=== PATIENT | female | born 1990 | race Caucasian/White ===

== ENCOUNTER 2024-10-31 09:19 | Outpatient (RCR) | payer OTHER, SELFPAY ==
--- NOTE | 2024-10-31 09:00 | BH.SGPN.GN ---
Behaviors/Verbalizations/Mental Status: []? Eye contact is good. Motor activity is appropriate. Appearance is casual. Speech is Appropriate. Mood is anxious and depressed. Affect is congruent. Thoughts are linear and logical. No evidence of psychosis. Reviewed daily check in sheet and no reports of suicidal ideations or intent? Client Response/Progress/Benefit: []? Pt participated when prompted. Shared with the group that today is her first?day in IOP. Pt expressed struggling to get back to baseline following issues at work. Described ruminating and avoidance since. Noted that she would like to learn skills to better manage her mental health and reduce the impact they are having on daily life. Progress noted. Benefited from group support and encouragement. Recommended continued IOP tx to improve mood stability, reduce depression, and increase confidence.? Narrative Note: []
--- NOTE | 2024-10-31 09:30 | BH.COMM ---
Communication Note Communication with Client Communication Note: Met with pt to complete paperwork, update any changes to pre-admission screening, and complete risk assessment. Low risk on [place] [facility] Scre[facility]. Consulted with Dr. Mae regarding current symptoms with orders to admit to IOP with dx of F41.1
--- NOTE | 2024-10-31 10:10 | BH.SGPN.GN ---
Behaviors/Verbalizations/Mental Status: []Eye contact is good. Motor activity is appropriate. Appearance is casual. Speech is Appropriate. Mood is anxious. Affect is congruent. Thoughts are linear and logical. No evidence of psychosis. Client Response/Progress/Benefit: []Pt was an active participant in group discussion. Engaged and attentive during psychoeducation and interactive discussion on coping skills, why people use unhealthy coping skills, how to replace unhealthy coping skills, and internal vs external coping skills. Attentive as peers came up with list of unhealthy coping skills. Pt reported personally, she tends to ignore when she needs helps and push through which leads to more problems. Group discussed the effects of maladaptive coping skills on mental health. Benefited from increased understanding of unhealthy coping skills and the need for developing healthy internal and external coping skills. Actively participated during experiential group activity and was able to related this activity to group topic. Will continue in IOP to prevent decompensation, gain healthy coping skills, and improve functioning. Narrative Note: []
--- NOTE | 2024-10-31 11:10 | BH.SGPN.GN ---
Behaviors/Verbalizations/Mental Status: []Pt alert and oriented, casually dressed and groomed. Eye contact good. Motor activity appropriate. Speech within normal limits. Affect constricted, mood anxious. Thoughts linear, logical, no signs of hallucinations or delusions. Client Response/Progress/Benefit: [] Pt responded well to session, taking notes and contributing when prompted. Group discussed the different categories of coping skills which included distraction, emotional release, grounding, self-love, and thought challenging. Pt participated in creating a coping skills ?menu? from the different categories of coping skills. Pt's coping skill menu included: music, breathing skills, self-care, socializing, and looking at evidence against a negative thought. Appeared to benefit from increasing repertoire of healthy coping skills. Will continue IOP to improve use of healthy coping, improve motivation, and prevent decompensation.
--- NOTE | 2024-11-02 08:00 | BH.COMM ---
Communication Note Communication with Client Communication Note: Program psychiatrist was set to meet with patient on 10/31/24 however due to psychiatrist illness it was cancelled. Rescheduled the initial psych eval till 11/02/24. Unfortunately program psychiatrist remained ill and was unable to meet with pt. Unable to secure another psychiatrist to cover in short time frame. Consulted with program psychiatrist over the phone and recommends pt continue in IOP based on symptoms presented as w/o the program he will decompensate. Arrangements made for psychiatry coverage for next week. Pt aware and agreeable.
--- NOTE | 2024-11-02 09:00 | BH.SGPN.GN ---
Behaviors/Verbalizations/Mental Status: [] Eye contact is good. Motor activity is appropriate. Appearance is casual. Speech is Appropriate. Mood is anxious. Affect is congruent. Thoughts are linear and logical. No evidence of psychosis. Reviewed daily check in sheet and no reports of suicidal ideations or intent Client Response/Progress/Benefit: [] Pt participated when prompted. Attentive. Daily symptom tracker notes 09/30 for depression, anxiety, and irritability. Reports improved mood from earlier this week which she notes may be due to increase social engagement with friends yesterday. Elaborated on activities she completed with friends and how this is beneficial for her mental health. Very brief and superficial check-in. She reports continues anxiety, stress, and fear related to her job, however did not elaborate. Limited progress noted. Benefited from group support,enocuragment, and feedback. Will continue in IOP to prevent decompensation, stabilize anxiety, and improve functioning to return to work. Narrative Note: []
--- NOTE | 2024-11-02 10:15 | BH.SGPN.GN ---
Behaviors/Verbalizations/Mental Status: [] Eye contact is good. Motor activity is appropriate. Appearance is casual. Speech is Appropriate. Mood is anxious. Affect is congruent. Thoughts are linear and logical. No evidence of psychosis Client Response/Progress/Benefit: [] Pt receptive to session AEB listening attentively to others and taking notes. Pt attentive throughout psychoeducation on the cognitive triangle and maintenance cycles. Pt attentive and engaged during small group discussion reviewing the impact of daily activities and behaviors in either reinforcing unhealthy maintenance cycles and depression or assisting in reducing symptoms (?down? vs ?up? activities). Pt identified common up activities (working out, dancing, going for walks, crafts) and down activities (unrealistic goals, not showering, isolation). Appeared to benefit from increased awareness of current behaviors and impact these have on mental health. Will continue IOP to prevent decompensation, stablize anxiety, increase healthy coping, and improve functioning to return to work. Narrative Note: []
--- NOTE | 2024-11-02 11:10 | BH.SGPN.GN ---
Behaviors/Verbalizations/Mental Status: []Pt alert and oriented, neatly dressed and groomed. Eye contact good. Motor activity appropriate. Speech within normal limits. Affect congruent, mood euthymic and anxious. Thoughts linear, logical, no signs of hallucinations or delusions. Client Response/Progress/Benefit: [] Pt responded well to session, attentive and engaged in group discussions and activity. Actively engaged in continued discussion about up activities and down activities. Active participant as group discussed values and the benefits that knowing one's values can have on one's mental health. Pt completed worksheet on values and set a goal to improve her spirituality by going to mu-ism and spending time reading the bible. Benefited from increased awareness of their personal values and how incorporating their values into behavioral activation goals can positively impact mental health. Will continue in IOP to prevent decompensation, improve daily functioning, and reduce negative thinking patterns. Narrative Note: []
--- NOTE | 2024-11-07 09:45 | BH.NA ---
Physical Data Vital Signs Pulse Rate: 79 Blood Pressure: 121/78 Height/Weight Height: 1.63 m Weight:: 58.967 kg Weight in Pounds: 130.0 lbs Current Medication Compliance Medication Compliance Do you take your medication as prescribed?: Yes Nutritional History Appetite Nutritional Instructions: Describe your appetite:: Good Functional Assessment Sleep Pattern Describe any problems with sleeping: Client states since she has not been working the last few weeks, she has been sleeping more at night. Client states that she has not taken Ativan the last 3 nights though so she has been having more trouble getting to sleep. Sensory/Communication Assess Vision Problems Do you have any vision problems?: Glasses Communication Problems Do you have difficulty understanding what people are saying?: No Medical Problems/History Pain Assessment Do you have acute or chronic pain?: No Surgical History Surgical History Have you had any surgeries? If so, list type and date:: No Substance Abuse Substance Abuse Please describe substance abuse in the last 30 days:: Client denies alcohol, tobacco or substance use. Client states she drinks coffee and tea, usually 2-3 cups per day. Mental Status Summary Mental Status Significant Findings/Observations on Appearance and Mood:: Client is alert and oriented x 4. Client is casually groomed. Client is cooperative with assessment. Client makes fair eye contact. Client's voice has normal rate and volume. Client has a somewhat restricted affect. Client makes logical associations and has normal processing. Client denies delusions/hallucinations. Client denies SI. Suicide Assessment Suicidal Ideation Are you currently or have you been suicidal in the past?: No Suicidal Intentional Rating Scale (SIRS): No suicidal thoughts (past or present) Physician Notification Past Psychiatric History MH Treatment Hx Past Psychiatric Medications:: now taking Lexapro and this is her first medication for mental health Age of first mental health symptoms: Client states this year is the first time she has been on medication for mental health. Client does admit to symptoms of anxiety for several years. Describe (age, circumstance, etc) any past hospitalizations: None. Current providers for mental health treatment (counselor, psychiatrist, case consultant, etc.): Abimael Ortiz for counseling at [facility] Fall Risk Assessment Age Age: Less than 60 Mental Status Mental Status: Willing & able to ask for assistance when needed Physical Status Physical Status: No problems Impairments Impairments: None Elimination Elimination: Continent AND independent Gait or Balance Gait or Balance: Walks independently Hx of Falls History of falls in the past 6 months: No known history Medications/Substances Psychotropics:: Antidepressants Medications/substances used within the past 24 hours or ordered to administer: 1-2 of the medications/substances listed above Total Score Total Points:: 1 RN Summary of Impressions Impressions Recommendations Impressions: Psychiatric Issues: 1. Generalized anxiety disorder 2. Major depressive disorder, recurrent, moderate 3. Rule out mild autism 4. Primary support and work issues Level of Care How do the client's current symptoms and functional deficits support need for this level of care?: Client as referred to IOP by her therapist for increased anxiety. Client states it all started about a month ago when three days in a row at work, she did not feel like herself. Client states she felt like she was being tested and was afraid she was doing something wrong at work even though she knows she was doing what she was supposed to do. Client admits to thoughts that technology was testing her and she was afraid she was being tracked. Client states her anxiety is slightly less since she has been off work. Client states she recently had been living alone, but anxiety caused her to move back in with her parents. Client states she feels like she easy just shuts down when she starts feeling anxious. Client denies SI. IOP will promote gains and prevent further decompensation while providing social support and skills training.
--- NOTE | 2024-11-07 11:10 | BH.SGPN.GN ---
Behaviors/Verbalizations/Mental Status: []Pt alert and oriented, casual dressed and groomed. Eye contact good. Motor activity appropriate. Speech within normal limits. Affect congruent, mood anxious. Thoughts linear, logical, no signs of hallucinations or delusions. Client Response/Progress/Benefit: []Pt was an active participant during activity and discussion. Pt did well to remain attentive and participate as group worked on identifying characteristics and benefits of adopting a growth mindset. Worked with fellow participants in reframing the example fixed thoughts into growth mindset thoughts. Pt worked on changing own fixed thought and reframed the thought. Pt also wants to work on slowing down. Pt appeared to benefit from challenging own thoughts and engaging in the activity. Pt will continue IOP tx to decrease anxious avoidance, improve follow through on goals, and prevent decompensation.
[2024-11-07 11:31] VITALS: BP 121/78; PULSE 79
--- NOTE | 2024-11-07 12:25 | BH.PSY.EVA_ITS ---
Psychiatric Evaluation Initial Evaluation Initial Evaluation: History of Present Illness: [] The patient is a 33-year-old single female with a history of depression and anxiety who is who was referred by her therapist for worsening anxiety in the past few months. The patient has been on FMLA from work for the past 4 weeks due to her mental health issues. 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 In addition her roommate moved out and she had a move recently and is now living alone. She moved back in with her parents for 3 weeks but now got an apartment where she lives alone. She has a hard time being alone at times and she is having intrusive thoughts that she is doing things wrong at work and they are tracking her. She is aware that this is not actually happening. She has a history of an stressful incident at her last job where she worked for 10 years but then quit that job after an uncomfortable incident at work that she witnessed. For primary support she has her family sisters and friends. She endorses feeling confused and a little down. She endorses worthlessness, guilt, somewhat decreased appetite with stable weight. Her sleep is good now at 9 to 10 hours a night which she has low energy level and decreased concentration. When asked if she endorses enjoying anything she does she states I am not doing much. She is a worrier by nature but denies panic attacks, OCD, eating disorder, trauma or PTSD. She denies passive thoughts of , suicidal ideation, plan for suicide, homicidal ideation, hallucinations, delusions or symptoms of shobha ever. She denies any history of self-harm. She drinks 1 cup of coffee and a lot of caffeinated tea daily but is trying to drink more water. Current Psychiatric Medications: [] Lexapro (liquid formulation) 10 mg p.o. daily (x 1 month); Ativan 0.5 mg daily which she discontinued 4 days ago. Past Psychiatric History: [] No psych admits ever no suicide attempts ever she does have a therapist she sees regularly she was first anxious since she started school but she took her first medication for psychiatric reasons only 1 month ago which is the Lexapro. No other psych meds ever. She had counseling 5 to 10 years ago after she was at a neighbor's house 1 for reasons unknown to her she felt severe anxiety and felt like the place was demonic. This anxiety eventually resolved but she did see a counselor for it. Substance Use History: [] Non-smoker. No vaping. No marijuana. No alcohol or drug use. Allergies: [] Benadryl and sulfa Medications: [] Psych meds plus Tylenol as needed Past Medical History: [] No medical illnesses. No surgeries ever. 0 para 0 female who gets periods about once a month. She is not sexually active and is on no control. Family Psychiatric History: [] Mom is 63 years old and dad is 66 years old. The patient denies any psych history in the family and denies any completed suicide. She also denies any substance issues in her extended family. Personal/Social History: [] Patient was born and raised in [place] and describes her childhood as good. Parents are and the patient is the middle child and has a sister 3 years older and sisters 5 years younger than her. She did not do that well at school because she had dyslexia but she did graduate high school and went to college for 4 years total and obtained an associates degree in deltamethod. She denies any physical, verbal or sexual abuse ever. She has never had a serious relationship but she does want a boyfriend. 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 Legal History: [] No arrests. 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 No DUIs. Review of Systems: [] Negative except as noted in present illness. Vital Signs: [] Reviewed and nurses notes and updated and the patient is deemed medically able to participate in the IOP. Mental Status Examination: [] The patient is a 33-year-old female who appears normal for stated age and is seen wearing glasses. She is casually dressed and groomed with good hygiene and has no psychomotor agitation or retardation. Eye contact is fair to good. Speech is normal rate and rhythm and fluent but at times the patient seems to have difficulty describing feelings. Mood is anxious. Affect is constricted. Thought process is goal-directed and organized. Thought content: There is evidence of trauma from a prior incident at a prior job and there is work stress. There is no evidence of passive thoughts of , suicidal ideation, homicidal ideation, hallucinations, delusions or symptoms of shobha. Reality testing is intact. Intelligence is average. Judgment is intact. Insight is limited but some present. Impulsivity is low. Diagnoses: [] 1. Generalized anxiety disorder 2. Major depressive disorder, recurrent, moderate 3. Rule out mild autism 4. Primary support and work issues Plan: [] The patient will start the behavioral health IOP at [facility] as the structure, support, education and group therapy will hopefully prevent worsening of the patient's symptoms. The risk, options, possible complications and side effects of the medication were discussed with the patient and she understands accepts these. She agrees to increase her dose of Lexapro to 20 mg p.o. daily. She will continue to follow-up with her outpatient providers and I will see the patient in follow-up in several weeks. She will limit her use of caffeine if she is anxious.
--- NOTE | 2024-11-07 12:37 | BH.DR.ITP ---
Initial Treatment Plan Patient Information Visit Information: ADMISSION DATE: EXPECTED LOS: 4-6 weeks Problems/Symptoms Problem #1:: Depression Symptom:: Sadness, worthlessness, guilt, low motivation, decreased appetite, low energy, decreased concentration Problem #2:: Anxiety Symptom:: Worry, rumination, avoidance
--- NOTE | 2024-11-07 14:45 | BH.MTP_ITS ---
Master Treatment Plan Patient Information Program Physician:: Dr. Mae Primary Therapist:: Neha Ngo [facility] Psychiatric Diagnoses Psychiatric Diagnoses:: 1. Generalized anxiety disorder 2. Major depressive disorder, recurrent, moderate 3. Rule out mild autism Diagnosis Code(s):: F41.1 Estimated LOS Estimated LOS (in weeks):: 6 Problem/Goal #1 Problem/Goal #1 Stated Goal:: Client will reduce depression, feelings of hopelessness, and low motivation due to Major Depressive Disorder through the Intensive Outpatient Program. Description of Barriers: Potential barriers include: Negative thoughts, avoidance of anxious situations, difficulty communicating, and cognitive distortions. Functional Impact: The patient is a 33-year-old single female with a history of depression and anxiety who is who was referred by her therapist for worsening anxiety in the past few months. The patient has been on FMLA from work for the past 4 weeks due to her mental health issues. 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 She has a hard time being alone at times and she is having intrusive thoughts that she is doing things wrong at work and they are tracking her. She is aware that this is not actually happening. She endorses worthlessness, guilt, and somewhat decreased appetite. Her sleep is good now at 9 to 10 hours a night, but she has low energy level and decreased concentration. When asked if she endorses enjoying anything she does she states I am not doing much. She is a worrier by nature but denies panic attacks. Objectives Objective #1: Stated Objective: Client will learn and utilize 2-3 healthy coping strategies to manage depressive symptoms. Interventions: Therapist will utilize CBT techniques to assist client with understanding the connection between thoughts, feelings and behaviors. Education will be provided on behavioral activation. Therapist will assist client in learning internal coping strategies to manage depressive symptoms, along with helping client identify triggers. Discharge Criteria: Client will have achieved this goal when can verbalize and has practiced at least 2 healthy coping strategies that successfully manage depressive symptoms. Target Date: 12/08/24 Review Date: 11/28/24 Objective #2: Stated Objective: Identify at least 2-3 negative self-talk messages used to reinforce feelings of worthlessness and replace thoughts with positive messages. Interventions: Therapist will help client identify distorted, negative beliefs about self and replace with more realistic, affirmative messages. Discharge Criteria: Client will have achieved this goal when can verbalize at least 2 negative self-talk messages and effectively replace those thoughts with affirmative messages.? Target Date: 12/12/24 Review Date: 11/28/24 Problem/Goal #2 Problem/Goal #2 Stated Goal:: Client will reduce overall frequency, intensity, and duration of the anxiety so that daily functioning is not impaired.? Description of Barriers: Potential barriers include: Negative thoughts, avoidan ce of anxious situations, difficulty communicating, and cognitive distortions. Functional Impact: The patient is a 33-year-old single female with a history of depression and anxiety who is who was referred by her therapist for worsening anxiety in the past few months. The patient has been on FMLA from work for the past 4 weeks due to her mental health issues. 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 She has a hard time being alone at times and she is having intrusive thoughts that she is doing things wrong at work and they are tracking her. She is aware that this is not actually happening. She endorses worthlessness, guilt, and somewhat decreased appetite. Her sleep is good now at 9 to 10 hours a night, but she has low energy level and decreased concentration. When asked if she endorses enjoying anything she does she states I am not doing much. She is a worrier by nature but denies panic attacks. Objectives Objective #1: Stated Objective: Client will learn and implement 2-3 calming skills to reduce overall anxiety and manage anxiety symptoms. Interventions: Therapist and group sessions will help client identify physiological warning signs of anxiety, increase awareness of thoughts that increase anxiety, and identify behaviors that reinforce anxious symptoms. Group and individual counseling will teach client calming skills to help manage anxious symptoms. Discharge Criteria: Client will have achieved this goal when can verbalize at least 2 calming skills and reports skills successfully help reduce anxious sy mptoms. Target Date: 12/12/24 Review Date: 11/28/24 Objective #2: Stated Objective: Client will identify 2-3 anxiety triggers and 2 coping skills to use when feeling anxious. Interventions: Therapist and group sessions will assist client in exploring what triggers anxiety and teach client coping strategies to effectively manage anxiety symptoms. Therapist and group sessions will provide psychoeducation on impact avoidance has on anxiety. Discharge Criteria: Client will have met this goal when can identify at least 2 triggers to anxiety and verbalize two healthy ways to cope with feelings of anxiety. Target Date: 12/12/24 Review Date: 11/28/24
--- NOTE | 2024-11-07 14:59 | BH.MDN ---
Multi-Disciplinary Note Note 45-min Individual: Time Started:: 10:10 Date: 11/07/24 Purpose of session/treatment goals addressed:: Purpose of session was to build rapport, solidify treatment goals, and gather background information. Eye Contact:: Fair Motor Activity:: Appropriate Appearance:: Casual Speech:: Soft Mood:: Anxious Affect:: Constricted Thoughts:: Linear, Logical and No evidence of hallucinations/delusions noted Staff Interventions:: CBT techniques, mindfulness skills (3 minute guided meditation in session), rapport building, strengths perspective, treatment planning, goal setting and taught coping skills (breathing, meditation, opposite action) Client Response:: Client stated she is seeking IOP treatment due to experiencing high amounts of anxiety which negatively impacted her ability to complete her job duties and is currently on leave from work. Client reported she is experiencing several significant stressors at once which led to high amounts of anxiety and difficulty functioning. Client stated she has been off work since October 08 and is feeling anxious about having to return at some point. Client reported additional psychosocial stressor is trying to adjust to living alone in a new apartment because her roommate moved out after getting . Client stated she was staying with her parents for a little bit but now is on her own and is somewhat stressed about adjusting to her own place. Client stated anxiety impacts her daily life and often leads to procrastination at home. Client stated that her procrastination results in chores and tasks not getting completed in a timely manner which leads to her feeling overwhelmed and not wanting to do anything. 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 Client stated something happened at the flower shop but did not want to go into any detail. Client reported the situation that she witnessed resulted in her quitting that job abruptly and does still have anxious thoughts and some trust issues from that situation. Client said in addition to the psychosocial stressors mentioned previously client stated she also has been struggling with adapting to having a new boss at her current job. Client stated she does struggle with being assertive and often jumps to conclusions. She endorses worthlessness, guilt, anhedonia, and somewhat decreased appetite with stable weight. Her sleep is good now at 9 to 10 hours a night, but reports she has low energy level and decreased concentration. She is a worrier by nature but denies panic attacks. Therapist led client in a 3 minute guided meditation to teach her calming skill to help with anxiety management. Therapist also taught client belly breathing and grounding skills. Client open to practice calming skills for homework. Risks/Concerns:: Denies suicidal ideation, plan, or intention to date. future oriented. Progress Toward Goals/Plan:: Client reports ongoing anxiety and depression. client currently on FMLA from work due to worsening anxiety which made it difficult for her to perform her work duties. Client shared she is anxious about the thought of returning back to work. Client and therapist to focus on building healthy anxiety reduction skills to decrease anxious avoidance and improve daily functioning. Client to continue IOP to improve healthy coping, improve follow through on daily home tasks, and prevent decompensation. Time Stopped:: 10:55
--- NOTE | 2024-11-09 09:00 | BH.SGPN.GN ---
Behaviors/Verbalizations/Mental Status: [] Eye contact is good. Motor activity is appropriate. Appearance is casual. Speech is Appropriate. Mood is anxious and euthymic. Affect is congruent. Thoughts are linear and logical. No evidence of psychosis. Reviewed daily check in sheet and no reports of suicidal ideations or intent. Client Response/Progress/Benefit: [] Pt was an active participant in group discussion. Attentive. Daily symptom tracker notes 09/30 for depression, 09/30 for anxiety, and 09/30 for agitation which indicates progress for pt. Shared with the group mental health wins including getting out of the house to get new tags for her car after being isolated due to sickness for much of the week. Identified reminding herself of the importance of showing up for herself and benefits of spending time with support. Shared an additional win as making small progress on cleaning her place via doing laundry and dishes. Progress noted. Benefited from group support, encouragement, and feedback. Will continue in IOP to prevent decompensation, increase healthy coping, and improve communication. Stressor noted as not working and feeling unsure of what she is going to decide to do about working moving forward. Receptive of supportive feedback from group. Progress noted. Benefited from group support, encouragement, and feedback. Will continue in IOP to prevent decompensation, increase healthy coping, and improve self-confidence. Narrative Note: []
--- NOTE | 2024-11-09 10:10 | BH.SGPN.GN ---
Behaviors/Verbalizations/Mental Status: []Pt alert and oriented, casually dressed and groomed. Eye contact good. Motor activity appropriate. Speech within normal limits. Affect congruent, mood anxious. Thoughts linear, logical, no signs of hallucinations or delusions. Client Response/Progress/Benefit: []Pt participated during small group discussions. Attentive during psychoeducation about defense mechanisms. Showed engagement during small group discussions and helped group identify which defense mechanisms were maladaptive, adaptive, or ?somewhere in the corona.? Pt worked with small group on identifying how each defense mechanism can impact mental health and gave examples. ?Seemed to benefit from gaining awareness about the different defense mechanisms. Pt to continue IOP tx to prevent decompensation, increase ability to manage anxiety, and reduce negative self-talk. Narrative Note: []
--- NOTE | 2024-11-09 11:10 | BH.SGPN.GN ---
Behaviors/Verbalizations/Mental Status: []Pt alert and oriented, casually dressed and groomed. Eye contact good. Motor activity appropriate. Speech within normal limits. Affect congruent, mood euthymic. Thoughts linear, logical, no signs of hallucinations or delusions. Client Response/Progress/Benefit: []Pt responded well to session, participating in activity and small group discussion. Group reviewed the rest of the defense mechanisms and discussed how these are adaptive, maladaptive, or somewhere in the corona. Pt's defense mechanisms included suppression, anticipation, intellectualization, and sublimation. Pt listened to greenhouse or nursery transplanter teach different skills to help pt?s cope with or change their defense mechanisms. Pt appeared to benefit from gaining insight to the different defense mechanisms and learning coping skills. Pt will continue IOP tx to decrease anxious avoidance, challenge distorted/negative thoughts, and prevent decompensation.
--- NOTE | 2024-11-13 09:00 | BH.SGPN.GN ---
Behaviors/Verbalizations/Mental Status: []Pt alert and oriented, neatly dressed and groomed. Eye contact good. Motor activity appropriate. Speech within normal limits. Affect congruent, mood tired and content. Thoughts linear, logical, no signs of hallucinations or delusions. Reviewed pt?s symptom tracker, no risk for suicidal ideation, plan, or intent 11/13/24. Client Response/Progress/Benefit: []Pt was an active participant in group discussions. Attentive. Able to identify mental health wins including going to counseling yesterday and being able to help her family. ?Pt's stressor today is her [id number] got into a car accident and although he is okay, pt is stressed because ?I absorb their pain? and pt had to help them with transportation yesterday. Pt stated pt is feeling ?tired this morning. Pt receptive to feedback from peers which pt reported was helpful. Progress noted. Benefited from group support, encouragement, and feedback. Will continue in IOP to prevent decompensation, improve daily functioning, and increase distress tolerance skills. Narrative Note: []
--- NOTE | 2024-11-13 10:10 | BH.SGPN.GN ---
Behaviors/Verbalizations/Mental Status: [] Eye contact is good. Motor activity is appropriate. Appearance is casual. Speech within normal limits. Mood is anxious. Affect is congruent. Thoughts are linear and logical. No evidence of psychosis. Client Response/Progress/Benefit: [] Client was an active participant in group discussion and experiential activity. Attentive during psychoeducation on resilience. Participated in interactive discussion with peers on the definition of resilience. Group identified factors that impact resiliency which include; current mood, stress level, health, pain levels, sleep, and environment. Group also worked together to identify the benefits of being resilient and how it is related to mental health. Group believes resilience can increase adaptability, keep one moving towards goals, improve self-care, improve relationships, and decrease stress. Able to relate experiential activity of group juggle to topics of resilience. Benefited from increased awareness of resilience and the factors that contribute to building resilience. Will continue in IOP to prevent decompensation, increase healthy coping, and improve functioning to return to work. Narrative Note: []
--- NOTE | 2024-11-13 11:10 | BH.SGPN.GN ---
Behaviors/Verbalizations/Mental Status: [] Client alert and oriented, casually dressed and groomed. Eye contact good. Motor activity appropriate. Speech within normal limits. Affect congruent, mood euthymic. Thoughts linear, logical, no signs of hallucinations or delusions Client Response/Progress/Benefit: [] Client responded well to session AEB completing the resilience worksheet provided. Client actively participated in the discussion and worked cooperatively with group to identify strategies to enhance each of the components discussed. Client reports belief they already use resilience trait of ?maintain a hopeful outlook? Client discussed that they could work on taking care of herself. Client seemed to benefit from discussing strategies for improving personal resilience and identifying resilience traits client already possesses. Will continue IOP tx to increase overall functioning and prevent decompensation. Narrative Note: []
--- NOTE | 2024-11-14 09:05 | BH.SGPN.GN ---
Behaviors/Verbalizations/Mental Status: [] Eye contact is good. Motor activity is appropriate. Appearance is casual. Speech is Appropriate. Mood is dysthymic and anxious. Affect is congruent. Thoughts are linear and logical. No evidence of psychosis. Reviewed daily check in sheet and no reports of suicidal ideations or intent. Client Response/Progress/Benefit: [] Pt was an active participant in group discussions. Attentive. Did well to identify 2 mental health wins including being able to keep herself busy yesterday, described playing in her volleyball league. Identified use of opposite action. Additional win noted as attending a chiropractor appointment she had been putting off as well. Current stressor noted as struggling with feeling low and less motivated today and beating herself up for feeling she did too much yesterday. Benefited from group support, encouragement, and feedback. Will continue in IOP to prevent decompensation, promote mood stability, and increase consistent use of healthy coping. Narrative Note: []
--- NOTE | 2024-11-14 10:10 | BH.SGPN.GN ---
Behaviors/Verbalizations/Mental Status: [] Pt alert and oriented, casually dressed and groomed. Eye contact good. Motor activity appropriate. Speech within normal limits. Affect congruent, mood depressed and anxious. Thoughts linear, logical, no signs of hallucinations or delusions. Client Response/Progress/Benefit: []Pt an active participant in group discussions on defining conflict (internal/external) and possible benefits to conflict. Attentive during psychoeducation on conflict styles (avoidant, accommodating, competing, cooperative) and engaged during group discussion in which peers identified the benefits and consequences to each conflict style. Pt identified that she tends to be avoidant but tries to be cooperative. Benefited from increased awareness of the impact of conflict styles in mental health. Will continue in IOP tx to prevent decompensation, stabilize mood, and improve functioning to return to work. Narrative Note: []
--- NOTE | 2024-11-14 14:22 | BH.MDN_ITS ---
Multi-Disciplinary Note Note 45-min Individual: Time Started:: 11:15 Date: 11/14/24 Purpose of session/treatment goals addressed:: Purpose of session was to address goals 1 and 2 from MTP. Eye Contact:: Good Motor Activity:: Appropriate Appearance:: Neat Speech:: Appropriate Mood:: Euthymic and Anxious Affect:: Full Thoughts:: Linear, Logical and No evidence of hallucinations/delusions noted Staff Interventions:: thought challenging, CBT techniques, rapport building, strengths perspective, goal setting and taught coping skills Client Response:: Client reported experiencing improved mood the last few days which she partly attributes to having time off work because it has helped decrease her anxiety. Client stated she has been listening to more music and trying the belly breathing that she learned last individual session. Client reported she still trying to get used to using belly breathing but noted because her anxiety is decreased due to not working right now she has not really been experiencing high amounts of anxiety comparatively to when she was working. This commercial real estate underwriter encouraged her to continue to practice the belly breathing so that she feels more ready to manage the anxiety when it potentially increases when she returns to work. Client stated she is feeling anxious about returning to work because she is unsure of what role she wants to have when she goes back. Client reported she feels ready to learn a new job task in addition to being at the [employer]. Client stated she does not think she wants to completely change her job responsibilities but feels it would be a good challenge for her to have an additional new task to learn. 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 Client stated she has been pushing off this conversation due to feeling anxious about the unknown with his response. Client stated historically speaking she has struggled with openly communicating her thoughts and feelings at work which she recognizes has increased her anxiety and resulted in her jumping to conclusions. Client reported she would like to work on doing better with improved direct communication because being passive often increases her anxiety and results in her not having the answers that would help. Client and therapist work together to discuss tentative plan on how she would like to slowly return back to work. Client stated she thinks to be helpful to return to work at 2 days a week while she is still in IOP that way she can ease her self back in to her job while she still has support. Client reported she is looking forward to the weekend because she has a plan to go away with her sister and family to [place]. Client stated they have plans to go to a [employer] while in [place] which client stated she is excited about. Client reported she does not feel anxious about going on a trip but has noticed that she is anxious about preparing and packing for the trip. Client stated she often struggles with procrastination on doing tasks that she does not enjoy. Client reported when she procrastinates she notices that it increases anxiety and often makes her feel more stressed. 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 Omer lopes stated she would like to get her dishes and laundry completed prior to leaving on Tuesday. Client reported it would be helpful if she started to pack part of her outfits today instead of waiting to do everything tomorrow. Client agreeable to work on decreasing progress station for this week. 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 Risks/Concerns:: Denies suicidal ideation, plan, intention. Future oriented. Progress Toward Goals/Plan:: Progress noted with client reporting recent reduction in anxious symptoms. Client does note this decrease in anxiety is connected to not having to go into work currently. Client continues to report having difficult time completing bearing ring assembler like washing her dishes, cleaning bathroom, and doing her laundry. Client established goals to focus on getting those tasks completed. Plan is for client to continue IOP to improve daily functioning, decrease anxious avoidance, and prevent decompensation. Time Stopped:: 12:05
--- NOTE | 2024-11-15 02:00 | BH.SGPN.GN ---
Behaviors/Verbalizations/Mental Status: [] Eye contact is good. Motor activity is appropriate. Appearance is casual. Speech is Appropriate. Mood is euthymic. Affect is congruent. Thoughts are linear and logical. No evidence of psychosis. Reviewed daily check in sheet and no reports of suicidal ideations or intent. Client Response/Progress/Benefit: [] Pt was an active participant in group discussions. Attentive. Did well to identify 2 mental health wins including being able to visit her parents while also maintaining a boundary of not staying too late so she could get things done at home as well. Identified use of opposite action and positive self-talk. Additional win noted as completing all of her laundry. Current stressor noted as struggling with accepting her grandfather's decline in health. Benefited from group support, encouragement, and feedback. Will continue in IOP to prevent decompensation, promote mood stability, and increase consistent use of healthy coping. Narrative Note: []
--- NOTE | 2024-11-15 10:10 | BH.SGPN.GN ---
Behaviors/Verbalizations/Mental Status: [] Pt alert and oriented, casually dressed and groomed. Eye contact good. Motor activity appropriate. Speech within normal limits. Mood: anxious. Affect: congruent. Thoughts linear, logical, no signs of hallucinations or delusions. Client Response/Progress/Benefit: [] Pt was an active participate during group discussions. Attentive during psychoeducation on self-sabotage and its impact on mental health. Attentive as peers worked together to define self-sabotage. Worked with peers to identify different types of self-sabotage such as; procrastination, self-medicating, unrealistic expectations, people-pleasing, and poor boundaries. Worked with peers to identify reasons for self-sabotage behaviors (feels comfortable, can distract,perceived control, fear of success, and a type of self-protection). Seemed to benefit from gaining awareness about the self-sabotage. Pt to continue IOP tx to prevent decompensation, stablize anxiety, increase healthy coping, and improve functioning to return to work. Narrative Note: []
--- NOTE | 2024-11-15 11:10 | BH.SGPN.GN ---
Behaviors/Verbalizations/Mental Status: []Pt alert and oriented, casually dressed and groomed. Eye contact fair. Motor activity appropriate. Speech within normal limits. Affect congruent, mood anxious. Thoughts linear, logical, no signs of hallucinations or delusions. Client Response/Progress/Benefit: []Pt responded well to session, attentive and providing input. Pt worked on her mental health wellness garden picture and discussed things that contribute to mental wellness in his life. With peers, pt discussed things that would sabotage one's mental health wellness and added it to the garden metaphor. Pt identified things pt personally does to sabotage as procrastination, perfectionism, people pleasing, and running on empty. Pt attentive during psychoeducation on ways to reduce self-sabotage. Pt identified a skill to work on to decrease sabotaging behaviors. Pt appeared to benefit from learning skills and gaining awareness of self-sabotaging behaviors. Pt will continue IOP tx to improve follow through on goals, challenge negative thoughts, and prevent decompensation.
--- NOTE | 2024-11-21 10:15 | BH.SGPN.GN ---
Behaviors/Verbalizations/Mental Status: []Client alert and oriented, casually dressed and groomed. Eye contact good. Motor activity appropriate. Speech within normal limits. Affect congruent, mood euthymic, Thoughts linear, logical, no signs of hallucinations or delusions Client Response/Progress/Benefit: []pt responded well to session, contributing to discussion and engaged during the activity. Group identified the benefits of change which included: personal growth, increased confidence, improving mental health, progressing, and becoming resilient. Worked with the group to identify barriers to change and pt identified personal barriers as lack of self-care, negative view of self, and lack of confidence. pt participated along with group in activity where they discussed the emotions related to change. Benefited from increased awareness and understanding of emotions, benefits, and barriers related to change. Will continue IOP tx to prevent decompensation, gain healthy coping skills, and improve daily functioning. Narrative Note: []
--- NOTE | 2024-11-21 11:15 | BH.SGPN.GN ---
Behaviors/Verbalizations/Mental Status: []Client alert and oriented, neatly dressed and groomed. Eye contact good. Motor activity appropriate. Speech within normal limits. Affect congruent, mood depressed and anxious. Thoughts linear, logical, no signs of hallucinations or delusions. Client Response/Progress/Benefit: [] Pt responded well to session, attentive throughout. Did well to actively listen and contributed when prompted as group worked to review change process. Pt worked with group to relate the strategies used to overcome barriers in the various stages of change and common emotions throughout. Pt identified a change they would like to make is ?Going back to work.? Pt identified currently being in the preperation stage for this change. Pt said finding what skills she will need to help with this transition as one thing she can do to help pt get to the next stage. Appeared to benefit from identifying a change they want and how to progress. Pt will continue IOP tx to prevent decompensation, combat distorted thought patterns, and improve self-compassion. Narrative Note: []
--- NOTE | 2024-11-21 13:36 | BH.MDN_ITS ---
Multi-Disciplinary Note Note 45-min Individual: Time Started:: 09:00 Date: 11/21/24 Purpose of session/treatment goals addressed:: Purpose of session was to address goals 1 and 2 from MTP. Eye Contact:: Fair Motor Activity:: Appropriate Appearance:: Casual Speech:: Appropriate Mood:: Anxious and Other (sad) Affect:: Congruent Thoughts:: Linear, Logical and No evidence of hallucinations/delusions noted Staff Interventions:: thought challenging, CBT techniques, mindfulness skills, strengths perspective, goal setting and other (returning to work discussion; reviewed self-care) Client Response:: In review of last individual session client stated she did still struggle with fascination a little bit before her trip but did complete her a difficult dishes prior to leaving. Client stated she could see some benefit to coming home with some of the dishes already done so she had to worry about it. Client reported while she was on her trip she found out that her grandpa had to go on hospice due to a blockage in his colon. Client stated her grandpa was 97 years old but prior to having to be on hospice he was doing well. Client stated feeling upset, sad, and not sure about what is going to happen with her grandpa. Client stated hospice told the family that if his blockage were to fix itself then there is a possibility that her grandpa could to live longer. Client stated with her grandpa's recent decline and the family being unsure if her grandpa is going to pass it has complicated her timeline for returning to work. Client stated she does not really want to reach out to work to talk about returning and having to immediately be off if her grandpa does not make it. Client stated she recognizes at some point she needs to have the conversation with her boss about returning to work. client shared she is supposed to return back to work full-time without any restrictions on December 10 but she wanted to gradually return back to work and need to talk to her primary care doctor about adjusting her paperwork. Client stated she feels like she is doing overall good job of engaging in some self care while trying to manage this added stress of her grandpa's decline in health. Client stated it has been helpful that her parents have given her specific responsibilities to help the family. Client reports she has been given the responsibility of transporting her great aunt to and from visiting client's grandpa at hospice. Client stated it has been helpful for her mood during this difficult time because she feels better that she is helping somebody else. 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 Client stated this weekend she would like to focus on accomplishing her taxes and laundry. Client reported she often puts off her taxes because she gets anxious completing the information herself and often needs support or help from her dad. Client recognizes pushing off task because she is an anxious typically does not help her situation and often creates more stress and feelings of being overwhelmed. Risks/Concerns:: Client denies suicide ideation, plan, intention. Future oriented. Progress Toward Goals/Plan:: Progress noted with client using healthy calming skill of breathing to help manage increased anxiety with her grandpa's declining health. Client has continued to struggle with anxious avoidance especially in regards to returning to work. Client has avoided reaching out to work due to feeling anxious about returning and having a conversation about how that would look. Client's recent stressor of her grandpa's declining health has increased her anxiety and created additional barrier to addressing her return to work. Client agreeable to reach out to primary care doctor to discuss potentially extending her FMLA so that she can gradually return at 2 days a week to work while attending IOP for 3 days so that she has continued support and can successfully return back to work versus trying to go back full-time immediately. Plan is for client to continue IOP to reinforce healthy coping skills, challenge negative and distorted thought patterns, decrease anxious avoidance, and prevent decompensation. Time Stopped:: 09:45
--- NOTE | 2024-11-21 14:16 | BH.MTP_ITS ---
Treatment Plan Review Demographics Date of Admission:: 10/31/24 Date of Treatment Plan Review:: 11/21/24 Admitting Diagnoses:: 1. Generalized anxiety disorder F41.1 2. Major depressive disorder, recurrent, moderate 3. Rule out mild autism Current Diagnoses:: 1. Generalized anxiety disorder F41.1 2. Major depressive disorder, recurrent, moderate 3. Rule out mild autism Patient Status Patient's Response to Treatment:: Client has responded well to treatment as evidenced by consistently attending IOP sessions and moderate participation in group discussions. Client has struggled with being completely open in individual therapy and struggles with follow through on homework. Status of Current Problems and Symptoms: Client reporting decrease in her anxious and depressed symptoms. Client has reported putting forth more effort to tackle certain chores and task at home instead of procrastinating. Client did recently go with her sister for a long weekend away which she noted to be helpful. Client's current DSM-5 cross cutting symptoms measure scores are indicating a decrease in her overall anxiety and depression however in her individual session today client was indicating an increase in anxiety due to her grandfather being sick and continued anxiety about having to return back to work soon. 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 Client continues to report some procrastination in certain areas of her life but has noted following through with certain goals created in individual sessions. Progress Problem #1: Problem Name:: Depression Status of Goals:: Obj 1 - progress noted, ongoing work encouraged. Pt can identify healthy coping skills, but needs to work on consistently applying skills. Obj 2 - not met. client starting to gain increased awareness of negative thought patterns, but needs to work on increasing independence with challenging negative thoughts. Per DSM 5 cross cutting symptom measure client's depressed symptoms have decreased by 33%. Problem #2: Problem Name:: Anxiety Status of Goals:: Obj 1 - progress noted, ongoing work encouraged. Pt can identify healthy calming skills, but needs to work on consistently applying skills. Obj 2 - not met. client starting to gain increased awareness of anxious triggers, but could benefit from continued work on using skills in the moment. Per DSM 5 cross cutting symptom measure client's anxiety symptoms have decreased by 56%. Team Recommendations:: Team recommends continued work on current goals and objectives with specific focus on increasing consistent application of skills.
--- NOTE | 2024-11-22 09:05 | BH.SGPN.GN ---
Behaviors/Verbalizations/Mental Status: []? Eye contact is good. Motor activity is appropriate. Appearance is casual. Speech is Appropriate. Mood is dysthymic. Affect is congruent. Thoughts are linear and logical. No evidence of psychosis. Reviewed daily check in sheet and no reports of suicidal ideations or intent? Client Response/Progress/Benefit: []? Pt engaged throughout, providing supportive feedback. Did well to identify mental health wins, which included spending time with her great aunt and helping her with a few errands.?Additional win noted as challenging herself to visiting her grandfather who is in hospice. Stressor noted as feeling more fatigued today as a result of focusing primarily on other's needs rather than her own Progress noted. Benefited from group support and encouragement. Recommended continued IOP tx to maintain mood stability, increase self-compassion, and prevent decompensation.? Narrative Note: []
--- NOTE | 2024-11-22 11:10 | BH.SGPN.GN ---
Behaviors/Verbalizations/Mental Status: [] Pt alert and oriented, casually dressed and groomed. Eye contact fair. Motor activity appropriate. Speech within normal limits. Affect congruent, mood anxious. Thoughts linear, logical, no signs of hallucinations or delusions. Client Response/Progress/Benefit: [] Pt responded well to session, engaged in the experiential activity and attentive throughout group processing. Interactive discussion with peers on what FOF has kept them from which included; trying new things, therapy, and medications as all as starting or ending relationships/jobs. Pt completed fear of failure worksheet and was able to identify thoughts and behaviors that reinforce personal fear of failure. Pt participated in small group discussion regarding strategies to overcome fear of failure. Identified struggling most with not meeting other's expectations. Strategies to overcome FOF identified as affirmations and self-care. ?Appeared to benefit from increased knowledge of strategies to combat fear of failure and gaining self-awareness. Pt will continue IOP tx to increase consistent use of healthy coping skills, challenge distorted thoughts, and prevent decompensation. Narrative Note: []
--- NOTE | 2024-11-23 09:05 | BH.SGPN.GN ---
Behaviors/Verbalizations/Mental Status: [] Eye contact is good. Motor activity is appropriate. Appearance is casual. Speech is Appropriate. Mood is depressed/anxious. Affect is congruent. Thoughts are linear and logical. No evidence of psychosis. Reviewed daily check in sheet and no reports of suicidal ideations or intent. Client Response/Progress/Benefit: [] Pt participated at times during the group discussions. Attentive. Daily symptom tracker notes 4/5 for irritability and 3/5 for depression/anxiety. Overall reports mood is ?worse?. Mental health win was ?eating 3 meals yesterday?. Shared decreased appetite due to ruminations and anxiety. Insight on the impact that poor appetite can have on her overall functioning which led to more concentrated effort. Reports feeling ?jittery and not content? today. Discussed completing a task which triggered a painful memory. Contrasting emotions as the task brings her pleasure however often reminds her of a painful experience. This led to increased anxiety, ruminations, hypervigilance, and overall decrease functioning. Limited progress noted. Benefited from group support, encouragement, and feedback. Will continue in IOP to prevent decompensation, stabilize mood, and improve functioning. Narrative Note: []
--- NOTE | 2024-11-23 10:10 | BH.SGPN.GN ---
Behaviors/Verbalizations/Mental Status: [] Client alert and oriented, casually dressed and groomed. Eye contact good. Motor activity appropriate. Speech within normal limits. Affect congruent, mood content and anxious. Thoughts linear, logical, no signs of hallucinations or delusions. Client Response/Progress/Benefit: [] Pt responded well to session AEB sharing and listening attentively to others. Group provided examples of benefits of having social support, including: validation, get assistance, and accountability. Pt also participated in group discussion regarding the barriers to accessing support identifying examples to include: negative thinking, lack of communication, and lack of trust. Personal example identified as not communicating needs and unrealistic expectations. Pt participated in experiential activity illustrating the impact communication, boundaries, and patience play in creating healthy support systems. Pt appeared to benefit from increased knowledge of the benefits of social support and greater self-awareness. Pt to continue IOP to improve distress tolerance, increase consistent use of healthy coping skills, and prevent decompensation. Narrative Note: []
--- NOTE | 2024-11-23 11:10 | BH.SGPN.GN ---
Behaviors/Verbalizations/Mental Status: []Client alert and oriented, casually dressed and groomed. Eye contact good. Motor activity appropriate. Speech within normal limits. Affect congruent, mood anxious. Thoughts linear, logical, no signs of hallucinations or delusions. Client Response/Progress/Benefit: [] Pt participated throughout AEB contributing to discussion, providing examples, and taking notes. Pt provided input during discussion on the types of support our supports can provide. Pt able to identify current support system and barriers that get in the way of using supports. Pt reported after identifying what type of supports pt receives, pt gained awareness that pt could benefit from more emotional support by asking her supports to help with increasing her own positive self-talk. Pt seemed to benefit from identifying the type of support pt needs to work on improving. Pt recommended to continue IOP tx to promote mood stability, reduce negative thinking patterns, and improve daily functioning. Narrative Note: []
== END 2024-11-23 23:59 ==
LOC: BHIOP 09:19
PROVIDERS: PCP Family Medicine; Referring Provider Psychiatry & Neurology Psychiatry; Visit Provider Psychiatry & Neurology Psychiatry
DX: F41.1 Generalized anxiety disorder (principal); F33.1 Major depressive disorder, recurrent, moderate
CPT/HCPCS: S9480; 90834; 90853

== ENCOUNTER 2024-11-26 07:36 | Outpatient (RCR) | payer OTHER, SELFPAY ==
--- NOTE | 2024-11-22 10:15 | BH.SGPN.GN ---
Behaviors/Verbalizations/Mental Status: []Pt alert and oriented, neatly dressed and groomed. Eye contact good. Motor activity appropriate. Speech within normal limits. Affect congruent, mood anxious. Thoughts linear, logical, no signs of hallucinations or delusions. Client Response/Progress/Benefit: [] Pt responded well to session, engaged in the experiential activity and attentive throughout group processing. Pt reported fear of failure has kept Pt from finding meaningful work and being more independent. Pt completed fear of failure worksheet and was able to identify thoughts and behaviors that reinforce personal fear of failure including negative self-talk, isolation, and self-doubt. Pt participated in small group discussion regarding strategies to overcome fear of failure. Identified wanting to work on thinking in the [place] and practicing self-compassion. ?Appeared to benefit from increased knowledge of strategies to combat fear of failure and gaining self-awareness. Pt will continue IOP tx to prevent decompensation, increase independence, and improve self-confidence. ? Narrative Note: []
[2024-11-24 02:40] VITALS: BP 121/78; PULSE 79
--- NOTE | 2024-11-26 09:00 | BH.SGPN.GN ---
Behaviors/Verbalizations/Mental Status: [] Eye contact is good. Motor activity is appropriate. Appearance is casual. Speech is Appropriate. Mood is anxious. Affect is congruent. Thoughts are linear and logical. No evidence of psychosis. Reviewed daily check in sheet and no reports of suicidal ideations or intent. Client Response/Progress/Benefit: [] Pt participated at times during the group discussions. Attentive. Daily symptom tracker notes 11/28 for depression and irritability. Overall mood reported to be ?worse?. Reports poor sleep last night. ? Yesterday I was really low?. Shared that IOP group topics are helpful however can be very difficult to process. ? The topics are really hitting?. Difficulty with decision-making, communicating, and processing past experiences. Limited progress noted. Benefited from group support, encouragement, and feedback. Will continue in IOP to prevent decompensation, stabilize anxiety, and improve functioning to return to work, Narrative Note: []
--- NOTE | 2024-11-26 10:10 | BH.SGPN.GN ---
Behaviors/Verbalizations/Mental Status: [] Eye contact is fair. Motor activity is appropriate. Appearance is casual. Speech is Appropriate. Mood is anxious. Affect is congruent. Thoughts are linear and logical. No evidence of psychosis. Client Response/Progress/Benefit: [] Pt was an active participant in group discussions. Attentive during psychoeducation on the 4 communication styles (Passive, Passive-Aggressive, Aggressive, and Assertive) and the obstacles to effective communication. Contributed during interactive discussion on the benefits of communicating effectively. Worked well with peers to identify the benefits and disadvantages to the different communication styles. Pt believes that she is primarily passive and passive-aggressive and gave examples of recent events. Able to identify the impact this has on relationships/family. Benefited from increased understanding of communication styles and how these can impact effective communication. Will continue in IOP to increase confidence, challenge distortions, and prevent decompensation.
--- NOTE | 2024-11-26 13:22 | BH.MDN ---
Multi-Disciplinary Note Note 45-min Individual: Time Started:: 11:35 Date: 11/26/24 Purpose of session/treatment goals addressed:: Purpose of session was to address goals 1 and 2 from [facility]. Eye Contact:: Good Motor Activity:: Appropriate Appearance:: Casual Speech:: Appropriate Mood:: Anxious Affect:: Congruent Thoughts:: Linear, Logical and No evidence of hallucinations/delusions noted Staff Interventions:: thought challenging, CBT techniques, strengths perspective, goal setting and other (communication styles) Client Response:: Client reported she completed her taxes last night which was one of her goals from last individual session. Client stated she did get some of her laundry done but still has some to go. Client stated she has struggled more last week with lower motivation which made it difficult to complete some of her other chores like keeping up with her dishes. Client stated her grandpa is still on hospice but is doing better because his blockage in his colon has improved. 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 Client stated HR told her that she needs to provide the paperwork from her primary care doctor on how her return to work will look in regards to whether will be full-time with no restrictions, if she will be going back on intermittent leave, etc. Client stated ideally she would like to return back to work at 2 days a week the weeks of December 10 and December 17 while she is attending [facility] for 3 days so that she has continued support considering work is a significant source of her anxiety. Client stated she is worried if she were to return back to work full-time and discharge from [facility] the week of December 10 she is unsure if she would be able to make it through the full week. Client is more hopeful that she will have a successful return to work if she can have continued support from [facility]. Client and therapist discussed some strategies that would be helpful with transition back to work. Client agreed having passive communication while at work has not been helpful for her because she often jumps to conclusions which increases her anxiety. Client stated it would be helpful to be more direct with her boss because she knows that she just talked to him it would go better than when she makes assumptions. Client reports sometimes she struggles with thinking she needs to know some information that really is not necessary for her to know given her role or responsibility at work. Client and therapist discussed ways she can be more assertive when she returns back to work which will help decrease anxious spiral and distorted thought patterns. Risks/Concerns:: Denies suicidal ideation, plan, intention. Future oriented. Progress Toward Goals/Plan:: Progress noted with client facing her anxious thoughts and choosing to reach out to human resources department to get information on returning to work process. Client has tentative plan of meeting with her primary care doctor to discuss potentially extending her FMLA so that she can gradually return back to work while she is in IOP to have support, considering work environment is a significant stressor for her. Client has struggled with low motivation which has negatively impacted ability to complete her home chores and responsibilities. Client has shown recent progress with using opposite action to get some of her laundry completed, message work, and message her primary care doctor. client is to continue IOP to improve consistent follow through with goals, challenge anxious and distorted thoughts, and prevent decompensation. Time Stopped:: 12:15
--- NOTE | 2024-11-28 09:02 | BH.SGPN.GN ---
Behaviors/Verbalizations/Mental Status: [] Client alert and oriented, casual appearance. Eye contact fair. Motor activity appropriate. Speech within normal limits. Affect congruent, mood anxious. Thoughts linear, logical, no signs of hallucinations or delusions. Reviewed client's symptom tracker, no risk for suicidal ideation, plan, or intent. Client Response/Progress/Benefit: [] Client responded well to session AEB listening to others and sharing thoughts/feelings. Client noted mental positive as getting out of the house yesterday because she was helpful to her sister by picking up her nephew. Client stated additional months of positive as noticing some improvement with her motivation because she was able to get more things done around the house. Client noted current stressor as figuring out return to work. Appeared to benefit from support from peers. Will continue IOP tx to increase consistent utilization of healthy coping skills, challenge anxious thoughts, and prevent decompensation. Narrative Note: []
--- NOTE | 2024-11-28 10:10 | BH.SGPN.GN ---
Behaviors/Verbalizations/Mental Status: [] Pt alert and oriented, casually dressed and groomed. Eye contact good. Motor activity appropriate. Speech within normal limits. Affect full, mood anxious and content. Thoughts linear, logical, no signs of hallucinations or delusions. Client Response/Progress/Benefit: [] Pt was an engaged participant AEB listening attentively to others, taking notes, and providing feedback in group discussions. Attentive during psychoeducation AEB by note taking. Pt worked along with peers in groups to define inappropriate guilt and appropriate guilt. Group worked together to provide examples of both inappropriate and appropriate guilt. Group identified a canceling plans and snapping at kids as appropriate guilt examples. Group identified setting a being in a down mood and taking responsibility for other?s emotions as having inappropriate guilt. Pt able to connect impact inappropriate guilt can have on MH and overall functioning. Identified struggling at times with reassurance seeking resulting in inappropriate guilt. Benefited from increased awareness of guilt and the differences between appropriate and inappropriate guilt. Pt to continue IOP tx to prevent decompensation, gain healthy coping skills, and increase thought challenge skills. Narrative Note: []
--- NOTE | 2024-11-28 11:10 | BH.SGPN.GN ---
Behaviors/Verbalizations/Mental Status: []Pt alert and oriented, casually dressed and groomed. Eye contact good. Motor activity appropriate. Speech within normal limits. Affect congruent, mood anxious and euthymic. Thoughts linear, logical, no signs of hallucinations or delusions. Client Response/Progress/Benefit: [] Pt was an engaged participant AEB listening attentively to others and providing input throughout group. Pt worked within their small group to identify strategies to manage inappropriate guilt. Identified a personal example of inappropriate guilt as ?feeling guilt for taking time off work.? Provided insight that this cues a feeling of ?fear of disappointing others? Pt wants to work on combatting inappropriate guilt by practicing self-talk and challenging emotional reasoning. Pt seemed to benefit from learning about strategies to manage appropriate and inappropriate guilt. Pt to continue IOP tx to promote mood stability, reduce negative self-talk, and improve daily functioning. ?? Narrative Note: []
--- NOTE | 2024-11-28 12:26 | PCM.BH.PN_ITS ---
Progress Note Progress Note: History of Present Illness/Interim History: The patient is a 33-year-old single female with a history of depression and anxiety who is seen in follow-up at the [facility] behavioral health IOP. I last saw the patient 3 weeks ago and at that time her Lexapro liquid formulation was increased to 20 mg p.o. daily. She is tolerating the increased dose well and feels that she is improving. She feels that her mood is less depressed and her anxiety is less severe. She feels that she is doing pretty well lately. She is somewhat stressed by her grandfather being in the hospital and the uncertainty of how this will work out. She feels she is learning valuable skills in the IOP but does also feel that it is really exhausting for her to learn as it always has been for her. She still is a little down and has a low energy level. She denies passive thoughts of , suicidal ideation, plan for suicide, homicidal ideation, hallucinations or delusions. The patient is planning to go back to work soon despite the history of traumatic experiences at her prior job and some intrusive thoughts about her current job that she is doing things wrong at work and they are tracking her. These have leveled off somewhat. Current Psychiatric Medications: [] Lexapro liquid formulation 20 mg p.o. daily; Ativan discontinued Mental Status Examination: [] The patient is a 33-year-old female who appears normal for stated age and wears glasses and is casually dressed and groomed with good hygiene. She has no psychomotor agitation or retardation. Speech is normal rate and rhythm and fluent with no pressure. Eye contact is fair to good. Mood is anxious. Affect is constricted. Thought process is goal-directed and organized. Thought content: There is evidence that the patient has somewhat difficulty describing feelings. There is no evidence of passive thoughts of , suicidal ideation, homicidal ideation, hallucinations, delusions or symptoms of shobha. Reality testing is intact. Judgment is intact. Insight is limited but fair. Impulsivity is low. Diagnoses: [] 1. Generalized anxiety disorder 2. Major depressive disorder, recurrent, moderate 3. Rule out mild autism 4. Primary support and work issues Plan: [] The patient will continue the IOP in behavioral health at [facility] as the structure, support, education and group therapy will hopefully prevent worsening of the patient's symptoms. No medication changes were made today as their medication dose was increased 3 weeks ago. She will continue to follow-up with her outpatient providers and I will see the patient in follow-up while she is in the IOP.
--- NOTE | 2024-11-30 09:05 | BH.SGPN.GN ---
Behaviors/Verbalizations/Mental Status: [] Eye contact is good. Motor activity is appropriate. Appearance is casual. Speech is Appropriate. Mood is depressed. Affect is congruent. Thoughts are linear and logical. No evidence of psychosis. Reviewed daily check in sheet and no reports of suicidal ideations or intent. Client Response/Progress/Benefit: [] Pt participated at times during the group discussion. Attentive. Daily symptom tracker notes /5 for depression and irritability. Shared with the group that she listened to music this morning. This is mental health win because ? I haven?t listened to music in awhile?. Unclear if music was a trigger of some kind or if she simply feels more engaged and happier therefore put music on. Reports overall has been feeling ?emotionally overwhelmed? and music helped lessen her stress. Discussion on how small actions and decisions can have an impact on our overall mood. Progress noted. Benefited from group support, encouragement, and feedback. Will continue in IOP to prevent decompensation/, stabilize anxiety, and improve functioning to return to work. Narrative Note: []
--- NOTE | 2024-11-30 10:10 | BH.SGPN.GN ---
Behaviors/Verbalizations/Mental Status: [] Eye contact is good. Motor activity is appropriate. Appearance is casual. Speech is Appropriate. Mood is content. Affect is congruent. Thoughts are linear and logical. No evidence of psychosis. Client Response/Progress/Benefit: [] Pt receptive of session, actively engaged throughout AEB taking notes, providing input, and contributing in group discussion. Appeared to connect with group topic of automatic thoughts and cognitive distortions, as well as the impact of thought patterns on mental health, coping behaviors, and relationships. This particular group is very heavy on psychoeducation and pt appeared to connect with distortions and how they can impact functioning. Identified struggling with the personalization distortion. Pt appeared to benefit from gaining insight on distorted thinking patterns and how this impacts overall mental health. Will continue IOP to stabilize mood and prevent decompensation. Narrative Note: []
--- NOTE | 2024-11-30 11:12 | BH.SGPN.GN ---
Behaviors/Verbalizations/Mental Status: [] Eye contact is good. Motor activity is appropriate. Appearance is casual. Speech is Appropriate. Mood is content. Affect is congruent. Thoughts are linear and logical. No evidence of psychosis. ? Client Response/Progress/Benefit: [] Pt was an active participant during group discussion. Pt was placed in a smaller group for activity and participated in identifying/combatting example distortions with peers. Pt was engaged in the smaller group, participated in group interactions to brainstorm answers, and appeared to be comprehending cognitive distortions. Pt stated could connect with many of the distortions covered in group. Benefited from gaining further insight and awareness of cognitive distortions as well as practicing ways to reframe and challenge thoughts. Will continue in [facility] tx to improve outlook, increase healthy coping skills, and prevent decompensation. Narrative Note: []
--- NOTE | 2024-12-03 09:00 | BH.SGPN.GN ---
Behaviors/Verbalizations/Mental Status: [] Eye contact is good. Motor activity is appropriate. Appearance is casual. Speech is Appropriate. Mood is anxious. Affect is congruent. Thoughts are linear and logical. No evidence of psychosis. Reviewed daily check in sheet and no reports of suicidal ideations or intent. Client Response/Progress/Benefit: [] Pt participated at times during the group discussions. Attentive. Daily symptom tracker notes 2/5 for depression and anxiety. She is very anxious about going back to work. Fearful that she will struggle around customers and co-workers. She has been stepping outside of her comfort zone in her personal life. ? I?ve been doing things out of the ordinary for me?. This has been helpful in building confidence and managing distress. Progress noted. Benefited from group support, encouragement, and feedback. Will continue in IOP to prevent decompensation, stabilize mood, and improve functioning. Narrative Note: []
--- NOTE | 2024-12-03 10:15 | BH.SGPN.GN ---
Behaviors/Verbalizations/Mental Status: []Client alert and oriented, casually dressed and groomed. Eye contact good. Motor activity appropriate. Speech within normal limits. Affect congruent, mood anxious. Thoughts linear, logical, no signs of hallucinations or delusions. Client Response/Progress/Benefit: [] Pt was an active participant AEB taking notes and engaging in group activity. Connected with the topic of pitfalls and listened to group discussion on barriers that prevent from choosing a healthier path to mental wellness. Group worked together to identify examples of personal pitfalls. These examples included; shutting down, not asking for help, negative thinking patterns, and isolation. Pt benefited from group as Pt learned to better identify potential barriers to improving mental health symptoms. Pt will continue IOP tx to increase distress tolerance, reduce avoidance, and improve self-confidence. Narrative Note: []
--- NOTE | 2024-12-03 11:15 | BH.SGPN.GN ---
Behaviors/Verbalizations/Mental Status: []Client alert and oriented, casually dressed and groomed. Eye contact good. Motor activity appropriate. Speech within normal limits. Affect congruent, mood content and anxious. Thoughts linear, logical, no signs of hallucinations or delusions. Client Response/Progress/Benefit: [] Pt receptive of session, engaged throughout AEB Pt actively listening and contributing to discussion as well as taking notes.? Pt participated in the experiential activity and did well to communicate ideas with peers and manage emotions. Pt attentive as group processed how the emotions and perspective of the group impacted the activity. Group worked together to identify different coping skills to help manage pitfalls. Pt identified a pitfall they struggle with as difficulties trusting other's advice. Pt plans to work on their pitfall by taking small steps to begin thinking about who her supports are and appropriate ways they can support her. Benefited from identifying personal pitfalls and strategies to overcome these pitfalls. Pt will continue IOP tx to prevent decompensation, improve daily functioning, and gain skills to continue to maintain mood stability. Narrative Note: []
--- NOTE | 2024-12-05 10:10 | BH.SGPN.GN ---
Behaviors/Verbalizations/Mental Status: [] Eye contact is good. Motor activity is appropriate. Appearance is casual. Speech is Appropriate. Mood is anxious and content. Affect is congruent. Thoughts are linear and logical. No evidence of psychosis. Client Response/Progress/Benefit: [] Pt was engaged and participating throughout, providing input and taking notes. Attentive during psychoeducation on anxiety and cognitive triangle. Participated in an interactive discussion on defining anxiety and identifying cognitive and physiological symptoms of anxiety. The group discussed the role of anxiety on isolation, avoidance, and overall functioning. Pt identified their physical/physiological signs of anxiety which includes: headache, not hungry, brain fog, shoulder tension, red face/neck, and heart palpitations. Benefited from increased awareness and insight on anxiety and its impact. Will continue in IOP to prevent decompensation, decrease anxiety, and improve functioning to return to work. Narrative Note: []
--- NOTE | 2024-12-05 11:10 | BH.SGPN.GN ---
Behaviors/Verbalizations/Mental Status: []Pt alert and oriented, casually dressed and groomed. Eye contact good. Motor activity appropriate. Speech within normal limits. Affect congruent, mood anxious and euthymic. Thoughts linear, logical, no signs of hallucinations or delusions. Client Response/Progress/Benefit: [] Pt was an active participant AEB pt providing input and listening attentively to peers. Attentive during psychoeducation on mindfulness coping skills and their impact on reducing anxiety and improving overall mental health wellness. Group was able to identify self-soothing and mind-based coping skills which included: 5-senses, meditation, deep breathing, TIPP, thought challenging, categories, and progressive muscle relaxation. Pt also participated with peers in practicing mindfulness skills in session including deep breathing. Pt would like to work on gardening and progressive muscle relaxation to manage anxiety. Appeared to benefit from increasing repertoire of anxiety reduction skills. Pt will continue IOP to reinforce healthy coping skills, improve confidence, and prevent decompensation.
--- NOTE | 2024-12-05 14:12 | BH.MDN ---
Multi-Disciplinary Note Note 45-min Individual: Time Started:: 09:05 Date: 12/05/24 Purpose of session/treatment goals addressed:: Purpose of session was to address goals 1 and 2 from [facility]. Additional focus was on return to work plan. Eye Contact:: Good Motor Activity:: Appropriate Appearance:: Casual Speech:: Appropriate Mood:: Anxious Affect:: Congruent Thoughts:: Linear, Logical and No evidence of hallucinations/delusions noted Staff Interventions:: thought challenging, CBT techniques, discharge planning, strengths perspective and goal setting Client Response:: Client reported she met with a primary care doctor yesterday and discussed extending her FMLA. Client stated her primary care physician agreed that it would be beneficial if client returned back to work next week at 2 days a week and the following week 2 days a week while she attended IOP 3 days a week so that she has support. Client stated her primary care physician agreed having client return gradually back to work while having a supportive IOP would set her up for better success in transitioning back to work versus if she went back full-time immediately he could lead to more difficulty with that transition. Client stated she still feels anxious about returning back to work but slight decrease with the idea of returning with a gradual approach. Client reported this week she notes increase in anxiety with worries about returning back to work. Client stated this morning she has been struggling a little more because she did not sleep well last night. Client reported she cannot stop thinking about the situation that occurred with her previous workplace 4 years ago. Client shared she recognizes the situation from her previous workplace continues to negatively impact her 4 years later. Client stated she has a difficult time opening up about what happened and what she witnessed at work. Client reported she has a lot of negative self-talk and shame connected to this situation. Client stated she recognizes it could be beneficial for her to open up more about what happened so that she can move on but feels quite anxious to share more details. Therapist encouraged client to continue to open up with her outpatient therapist at her own comfortable speed because it seems that avoidance of talking about the situation continues to strengthen the anxiety connected with that. Client stated currently most anxious that she does not know what her first day back to work using a look like until she is able to get a hold of her manager collection and talk that through. Client and therapist work together to discuss strategies that might help her with her transition back next week. Discussed the importance of client starting to engage in self reflection on a more consistent basis because client stated she struggles with reflecting on her own which often leads to things worsening before she even notices it. Client agreeable to start a reflection journal or questions every Tuesday to start practicing and make it more of a habit to reflect. Risks/Concerns:: Client denies suicidal ideation, plan, intention. Future oriented. Progress Toward Goals/Plan:: Progress noted with client following through with meeting with her primary care doctor to solidify her return to work plan with [facility] and drove into work to turn in the new [facility] paperwork to her human resource department. Client does note increase in anxious symptoms this week due to knowing she is returning back to work on a shortened schedule next week. Client endorses daily worries, low energy, erratic sleep, and some anxious avoidance. Client notes improvement in her mood, starting to see improvement with home functioning, improved motivation, and recent improvement in doing the anxious thing. Client is most worried about her return to work next week, but does have relief knowing she will have the support of [facility] to help her with this transition. Client is to continue IOP for 2 more weeks to help with transition back to work, reinforce consistent use of healthy coping skills, and prevent decompensation. Time Stopped:: 09:51
--- NOTE | 2024-12-07 09:00 | BH.SGPN.GN ---
Behaviors/Verbalizations/Mental Status: [] client alert and oriented, casual appearance. Eye contact fair. Motor activity appropriate. Speech within normal limits. Affect congruent, mood tired and anxious. Thoughts linear, logical, no signs of hallucinations or delusions. Reviewed client's symptom tracker, no risk for suicidal ideation, plan, or intent. Client Response/Progress/Benefit: [] Client responded well to session AEB listening to others and sharing thoughts/feelings. Client reported mental positive as recently feeling more motivated which helped her be social majority of the day by spending time with family. Client noted additional mental positive as helping out with gardening which she stated had been helpful to her mental health because it was outside and she did something she enjoys. Client noted mental health stressor as feeling completely exhausted on Tuesday which resulted in her doing mostly nothing around her house after she left IOP. Appeared to benefit from support from peers. Will continue IOP tx to decrease anxious avoidance, increase consistent use of healthy coping skills, and prevent decompensation. Narrative Note: []
--- NOTE | 2024-12-07 10:10 | BH.SGPN.GN ---
Behaviors/Verbalizations/Mental Status: [] Eye contact is good. Motor activity is appropriate. Appearance is casual. Speech is Appropriate. Mood is dysthymic and anxious. Affect is congruent. Thoughts are linear and logical. No evidence of psychosis. Client Response/Progress/Benefit: [] Pt engaged participant AEB listening to others, engaging in activity, and providing feedback at times during discussions. Attentive during psychoeducation and provided insight into obstacles that impede mental wellness. Pt shared with group current mental health reality (fear, lonely) and desired mental health reality (letting failures go, realizing my strength, and being in a relationship). Identified barriers to desired reality. Benefited from taking look at current mental health state and obstacles for progress. Pt to continue IOP tx to prevent decompensation, increase healthy coping, and improve functioning to return to work. Narrative Note: []
--- NOTE | 2024-12-07 11:15 | BH.SGPN.GN ---
Behaviors/Verbalizations/Mental Status: []Pt alert and oriented, neatly dressed and groomed. Eye contact good. Motor activity appropriate. Speech within normal limits. Affect congruent, mood content and anxious. Thoughts linear, logical, no signs of hallucinations or delusions. Client Response/Progress/Benefit: [] Pt was engaged at times during group discussions and was attentive during group activity. Worked with peers to identify strategies to help overcome barriers and obstacles to desired reality. Group worked together to develop strategies for the common barriers. Identified personal barriers to desired reality and chose one obstacle to work. Pt stated pt wants to work on not avoiding things that are uncomfortable by challenging my distortions.? Pt seemed to benefit from increased knowledge of practical strategies to overcome common barriers to moving forward. Will continue in IOP to promote mood stability, increase distress tolerance skills, and improve self-confidence. Narrative Note: []
--- NOTE | 2024-12-10 09:05 | BH.SGPN.GN ---
Behaviors/Verbalizations/Mental Status: [] Client alert and oriented, casual appearance. Eye contact good. Motor activity appropriate. Speech within normal limits. Affect congruent, mood anxious. Thoughts linear, logical, no signs of hallucinations or delusions. Reviewed client's symptom tracker, no risk for suicidal ideation, plan, or intent. Client Response/Progress/Benefit: [] Client responded well to session AEB listening to others and sharing thoughts/feelings. Client reported mental positive as cleaning her apartment and doing most of her laundry so that she is ready to go back to work and is less to do. Client noted additional mental positive as making a decision on her own to buy a new sweeper which she noted somewhat sound silly but often decision she makes she would run by her family members but this time did it on her own. Client noted current stressor as starting to feel anxious because she will be going back to work soon and is unsure how that transition will go. Appeared to benefit from support from peers. Will continue IOP tx to increase confidence, challenge distortions, and promote utilization of healthy coping skills. Narrative Note: []
--- NOTE | 2024-12-10 11:15 | BH.SGPN.GN ---
Behaviors/Verbalizations/Mental Status: [] Client alert and oriented, casually dressed and groomed. Eye contact good. Motor activity appropriate. Speech within normal limits. Affect congruent, mood euthymic. Thoughts linear, logical, no signs of hallucinations or delusions. Client Response/Progress/Benefit: [] Client engaged in session AEB client listening attentively to peers and providing input. Attentive during psychoeducation on 4 zones of regulation. Pt able to identify feelings and behaviors for each zone. Pt identified coping skills one can use to support self in each zone. Pt stated belief that pt is in the green zone today. Pt reports plan to be productive with energy today, but also without burning herself out. Benefited from increased education on zones of regulation or stages of alertness for emotions and healthy coping skills to use for each zone. Pt will continue IOP tx to increase self-awareness, improve emotional regulation skills, and prevent decompensation. Narrative Note: []
--- NOTE | 2024-12-10 14:57 | BH.MDN_ITS ---
Multi-Disciplinary Note Note 30-min Individual: Time Started:: 10:40 Date: 12/10/24 Purpose of session/treatment goals addressed:: Purpose of session was to discuss returning back to work this week and address goals 1 and 2 from [facility]. Eye Contact:: Fair Motor Activity:: Appropriate Appearance:: Casual Speech:: Appropriate Mood:: Anxious Affect:: Congruent Thoughts:: Linear, Logical and No evidence of hallucinations/delusions noted Staff Interventions:: thought challenging, CBT techniques, discharge planning, strengths perspective, goal setting, taught coping skills and other (return to work) Client Response:: Client reported she is returning to work on Tuesday and Tuesday this week. Client stated she is starting to feel more anxious with her return to work date approaching. Client stated the last few days she has been struggling with sleeping through the night because she has been more restless. 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 Client stated today she plans to reach out to work again to see if she can make contact with her real estate transaction manager to help relieve a little stress and anxiety. Client reported she is feeling nervous that she would have a hard time getting back into the routine and structure of getting up early enough to give herself time to make it to work on time. Client reported around June 2024 when she started to struggle with her mental health she did struggle with getting to work when she was supposed to be there. Client stated she knows this is something that she can do because she has been making it to IOP early to attend group. through discussion client recognizes there are things that she does that can often make situations harder for her especially when it comes to work. Client reported when she shows up exactly on time or a little late for work it adds to her anxiety and she walks into work already on edge. Client stated she also does not eat breakfast in the morning which leads her to feeling irritable mid morning because she has not had anything to eat. Client and therapist problem solved different strategies that she could try to help her decrease unnecessary stressors that add to the anxiety of being at work. Client stated she is going to focus on completing the rest of her laundry for the next 2 days, put away things that are on her counter to decrease clutter, and finished up some chores so that she does not have to worry about that when she gets back to work. Client agreed it would be helpful for her to start thinking about the things she can do the night before work to help set up her morning for better success. Client stated 1 thing that she wants to try to do on Tuesday evening is to lay out her work close the night before so that it is one less thing to worry about. Client stated she is also going to reflect on what she wants to tell coworkers if they ask why she has been off work. Client reported she does not mind that people know she has been in mental health treatment but thinks it would be helpful for her to have a structured statement to say so that she does not panic and over share. Risks/Concerns:: Denies suicidal ideation, plan, and intention. Future oriented. Progress Toward Goals/Plan:: Progress noted with client reporting feeling more ready to return to work this week compared to several weeks ago. Client reported although she is anxious to return to work she feels a better knowing that she has the support of IOP in between her work days. Client's anxious symptoms led her to go on FMLA due to not being able to complete job responsibilities, showing up late to work, and not functioning at baseline. Client and therapist have been focusing on identifying skills and strategies that client can utilize that will help her with successful transition back to work Client reports slight spike in anxious thoughts and physical symptoms with upcoming return to work. Client notes improvement with motivation, accomplishing chores and task at home, and noted improvement with independent decision making. Plan is for client to continue IOP this week and next week to help her successfully transition back to work. Time Stopped:: 11:10
--- NOTE | 2024-12-11 09:05 | BH.SGPN.GN ---
Behaviors/Verbalizations/Mental Status: []Pt alert and oriented, neatly dressed and groomed. Eye contact good. Motor activity appropriate. Speech within normal limits. Affect constricted, mood anxious. Thoughts linear, logical, no signs of hallucinations or delusions. Client Response/Progress/Benefit: []Pt was an active participant in group discussions. Attentive. Able to identify mental health wins including spending time with support this week, getting the dishes done, and being more productive at home. Pt's stressor today is ?having to go back to work.? Pt is feeling uneasy? this morning. Pt receptive to feedback from peers which pt reported was helpful. Progress noted. Benefited from group support, encouragement, and feedback. Will continue in IOP to promote use of healthy coping skills, improve daily functioning, and reduce negative thinking patterns. ? Narrative Note: []
--- NOTE | 2024-12-11 10:10 | BH.SGPN.GN ---
Behaviors/Verbalizations/Mental Status: [] Eye contact is good. Motor activity is appropriate. Appearance is casual. Speech is Appropriate. Mood is euthymic. Affect is congruent. Thoughts are linear and logical. No evidence of psychosis. Client Response/Progress/Benefit: [] Client was an active participant during interactive group discussions. Attentive during psychoeducation on the six types of boundaries (physical, emotional, intellectual, sexual, time, and material) AEB note-taking and providing input. Along with peers contributed to interactive discussion on defining what a boundary is in mental health. Client along with peers identified challenges to setting boundaries which included; fear of other's response, guilt, fear of rejection, being a people pleaser, not knowing that a boundary needs to be set, etc. Client along with peers identified the benefits to setting boundaries such as better relationships, increased time for self-care, and increased confidence, and feeling more heard. Group discussed the mental health benefits to establishing boundaries at work, school, and home. Group members filled out self assessment of their boundary setting. Client benefited from increased awareness and insight on the importance/benefit to setting health boundaries. Will continue in IOP to prevent decompensation, stabilize anxiety, and improve functioning. Narrative Note: []
--- NOTE | 2024-12-11 11:15 | BH.SGPN.GN ---
Behaviors/Verbalizations/Mental Status: [] Eye contact is good. Motor activity is appropriate. Appearance is casual. Speech is Appropriate. Mood is euthymic. Affect is congruent. Thoughts are linear and logical. No evidence of psychosis. Client Response/Progress/Benefit: [] Client responded well to session AEB listening attentively to peers, providing input, as well as taking notes throughout. Group discussed different styles of boundary setting. Client shared connecting most with rigid and porous style of boundary setting, identifying that initially she can be more rigid, but once she gets to know someone she will go straight to having little boundaries with being porous. Participated in small group discussion brainstorming various strategies for improving healthy boundary setting. Client reports wanting to begin using skill of being more assertive and to remind herself of her goals. Seemed to benefit from increased awareness of how different boundary styles can impact mental health. Will continue IOP tx to increase consistent application of skills, increase self-care and increase self worth. Narrative Note: []
--- NOTE | 2024-12-13 09:00 | BH.SGPN.GN ---
Behaviors/Verbalizations/Mental Status: [] Client alert and oriented, casual appearance. Eye contact fair. Motor activity appropriate. Speech within normal limits. Affect congruent, mood anxious. Thoughts linear, logical, no signs of hallucinations or delusions. Reviewed client's symptom tracker, no risk for suicidal ideation, plan, or intent. Client Response/Progress/Benefit: [] Client responded well to session AEB listening to others and sharing thoughts/feelings. Client shared mental positive as successfully making it through her first day back to work after being on leave. Client stated additional of the positive as being able to remember many of the task and skills to complete her job duties. Client stated current stressor as beating herself up for not remembering certain task and responsibilities which she noted did negatively impact her mood the rest of the evening and into the next day. Client agreed it could be beneficial to have pre-made a note card with different statements that could help her challenge any negative thoughts that might pop up during her work day. Appeared to benefit from support from peers. Will continue IOP tx to continue with assisting her and transition back to work, feel confidence, and prevent decompensation. Narrative Note: []
--- NOTE | 2024-12-13 10:15 | BH.SGPN.GN ---
Behaviors/Verbalizations/Mental Status: [] Pt alert and oriented, casually dressed and groomed. Eye contact good. Motor activity appropriate. Speech within normal limits. Affect congruent, mood anxious. Thoughts linear, logical, no signs of hallucinations or delusions. Client Response/Progress/Benefit: [] Pt was an active participant in group discussions. Attentive during psychoeducation on the CBT [place] (Thoughts, Behaviors, Emotions). Engaged in group discussion on how thoughts and behaviors can contribute to maintaining adverse feelings, such as depression, anxiety, and irritability. Completed worksheet in which pt identified obstacles and/or thoughts that are keeping them stuck. Shared obstacles that included; People don't want to hear my perspective, what do I bring to the table. Pt benefited from increased awareness of the basis of CBT therapy as well as specific thoughts that are impacting pt's progress. Will continue in IOP to prevent decompensation, increase healthy coping, and improve functioning to return to work. Narrative Note: []
--- NOTE | 2024-12-13 11:15 | BH.SGPN.GN ---
Behaviors/Verbalizations/Mental Status: []Pt alert and oriented, casually dressed and groomed. Eye contact good. Motor activity appropriate. Speech within normal limits. Affect congruent, mood anxious and content. Thoughts linear, logical, no signs of hallucinations or delusions. Client Response/Progress/Benefit: [] Pt responded well to session, contributing to discussion and attentive throughout. Pt identified a negative thought that has kept them stuck. Pt's thought was I'm not were I want to be/should be in life? Pt reported when they think this way, pt isolates. Pt worked to reframe the thought by finding more rational, realistic ways to look at the thoughts and then processed them within group setting. Pt reframed the thought to ?I have accomplished a lot in my life so far.? Pt appeared to benefit from practicing challenging negative thinking with peers and gaining coping skills. Pt will continue IOP tx to promote mood stability, increase thought challenging, and further increase self-compassion. Narrative Note: []
--- NOTE | 2024-12-18 09:00 | BH.SGPN.GN ---
Behaviors/Verbalizations/Mental Status: [] Client alert and oriented, casual appearance. Eye contact fair. Motor activity appropriate. Speech within normal limits. Affect congruent, mood anxious. Thoughts linear, logical, no signs of hallucinations or delusions. Reviewed client's symptom tracker, no risk for suicidal ideation, plan, or intent. Client Response/Progress/Benefit: [] Client responded well to session AEB listening to others and sharing thoughts/feelings. Client reported mental positive as being able to go to work yesterday and get through the full day. Client noted additional positive as getting time with her sister which she noted typically is helpful to her mood. Client noted current stressor as continued struggle with questioning her abilities in regards to functioning at work but was able to push through these negative thoughts and get through her workday. Client noted currently feeling overwhelmed. Appeared to benefit from support from peers. Will continue IOP tx to Narrative Note: []
--- NOTE | 2024-12-18 10:10 | BH.SGPN.GN ---
Behaviors/Verbalizations/Mental Status: [] Eye contact is good. Motor activity is appropriate. Appearance is casual. Speech is Appropriate. Mood is anxious and content. Affect is congruent. Thoughts are linear and logical. No evidence of psychosis. Client Response/Progress/Benefit: [] Pt was an active participant during group discussions and group activities. This portion of group was very psychoeducation heavy and pt was attentive during psychoeducation. Engaged during activity in which they identified which type of foods (i.e. carbs, sugar, salt, fast food, caffeine, etc) they seek out when sad, tired, angry, stressed, anxious, etc. Pt was able to identify the impact that certain foods have on their mental health through group example which was beneficial. Benefited from increased awareness of the connection between nutrition and mental health. Will continue in IOP to prevent decompensation, decrease anxiety, improve healthy coping, and improve functioning to return to work. Narrative Note: []
--- NOTE | 2024-12-18 11:15 | BH.SGPN.GN ---
Behaviors/Verbalizations/Mental Status: []Pt alert and oriented, neatly dressed and groomed. Eye contact good. Motor activity appropriate. Speech within normal limits. Affect congruent, mood euthymic and anxious. Thoughts linear, logical, no signs of hallucinations or delusions. Client Response/Progress/Benefit: [] Pt was an active participant during group discussions and group activities. This portion of group was very psychoeducation heavy and pt was attentive during psychoeducation. Engaged during activity in which they identified their own maintenance cycles with food and how it impacts their mental health symptoms. Pt and peers identified barriers to breaking these cycles as well as ways to combat barriers. Pt stated one barrier pt has is she tends to turn to sugar when overwhelmed or down, which then makes her feel worse. Pt wants to work on making smaller batches of sweets if she cooks. Benefited from increased awareness of the connection between nutrition and mental health and from identifying strategies. Will continue in IOP to promote self-confidence, reduce negative thinking patterns, and improve internal motivation. Narrative Note: []
--- NOTE | 2024-12-19 09:00 | BH.SGPN.GN ---
Behaviors/Verbalizations/Mental Status: [] Eye contact is good. Motor activity is appropriate. Appearance is casual. Speech is Appropriate. Mood is euthymic. Affect is congruent. Thoughts are linear and logical. No evidence of psychosis. Reviewed daily check in sheet and no reports of suicidal ideations or intent. Client Response/Progress/Benefit: [] Pt was an active participant in group discussions. Attentive. Did well to identify 2 mental health wins. Wins included listening to her devotional as a grounding tool for anxiety. Reflected that this did help improve her mood. Additional win noted as allowing herself to nap when feeling overwhelmed as a means of resetting.Stressor noted as returning to work, though did well to identify skills for managing the return. Benefited from group support, encouragement, and feedback. Will continue in IOP to prevent decompensation, promote mood stability, and increase consistent use of healthy coping. Narrative Note: []
--- NOTE | 2024-12-19 10:10 | BH.SGPN.GN ---
Behaviors/Verbalizations/Mental Status: []Pt alert and oriented, neatly dressed and groomed. Eye contact good. Motor activity appropriate. Speech within normal limits. Affect congruent, mood euthymic. Thoughts linear, logical, no signs of hallucinations or delusions. Client Response/Progress/Benefit: []Pt participated during small group discussions. Attentive during psychoeducation about defense mechanisms. Showed engagement during small group discussions and helped group identify which defense mechanisms were maladaptive, adaptive, or ?somewhere in the corona.? Pt worked with small group on identifying how each defense mechanism can impact mental health and gave examples. Pt stated she gained awareness that a lot of defense mechanisms are corona.?Seemed to benefit from gaining awareness about the different defense mechanisms. Pt to continue IOP tx to promote mood stability, further improve daily functioning, and reduce avoidance. Narrative Note: []
--- NOTE | 2024-12-19 11:10 | BH.SGPN.GN ---
Behaviors/Verbalizations/Mental Status: []Pt alert and oriented, neatly dressed and groomed. Eye contact good. Motor activity appropriate. Speech within normal limits. Affect congruent, mood euthymic. Thoughts linear, logical, no signs of hallucinations or delusions. Client Response/Progress/Benefit: [] Pt responded well to session, participating in activity and small group discussion. Group reviewed the rest of the defense mechanisms and discussed how these are adaptive, maladaptive, or somewhere in the corona. Pt's defense mechanisms included suppression, humor, and intellectualization. Pt stated humor is mostly maladaptive for her because she uses self-deprecating humor. Pt listened to sodium chlorite operator teach different skills to help pt?s cope with or change their defense mechanisms. Pt appeared to benefit from gaining insight to the different defense mechanisms and learning coping skills. Pt will continue IOP tx to promote mood stability and reinforce healthy coping skills. Narrative Note: []
--- NOTE | 2024-12-20 09:00 | BH.SGPN.GN ---
Behaviors/Verbalizations/Mental Status: []Pt alert and oriented, neatly dressed and groomed. Eye contact good. Motor activity appropriate. Speech within normal limits. Affect congruent, mood euthymic. Thoughts linear, logical, no signs of hallucinations or delusions. Reviewed pt?s symptom tracker, no risk for suicidal ideation, plan, or intent 12/10/24. Client Response/Progress/Benefit: []Pt was an active participant in group discussions. Attentive. Able to identify mental health wins including using coping skills, feeling like herself again, and looking forward to things again. Pt's stressor today is continuing to use the skills. Pt stated feeling optimistic this morning on her last day. Pt receptive to feedback and emotional support from peers which pt reported was helpful. Progress noted. Benefited from group support, encouragement, and feedback. Will discharge from IOP tx today as pt has made progress, accomplished her tx goals, and no longer meets criteria for IOP level of care. Narrative Note: []
--- NOTE | 2024-12-20 10:15 | BH.SGPN.GN ---
Behaviors/Verbalizations/Mental Status: []Pt alert and oriented, casually dressed and groomed. Eye contact good. Motor activity appropriate. Speech within normal limits. Affect congruent, mood anxious and depressed. Thoughts linear, logical, no signs of hallucinations or delusions. Client Response/Progress/Benefit: [] Pt receptive to session AEB contributing to group discussion, as well as listening attentively to others, and taking notes. Worked with group to brainstorm the positive and negative aspects of stress on physical and mental health as well as the impact of distress on performance, relationships, and mental health. Pt shared their current personal top stressors to be: work, physical health, and managing her mental health. Shared when feeling overwhelmed with stress pt tends to shut down or avoid. Benefited from increased awareness of positive and negative stress as well as how stress impact individuals. Will continue in outpatient tx to prevent decompensation and maintain gains. Narrative Note: []
--- NOTE | 2024-12-20 15:28 | BH.DS ---
Discharge Summary Demographics Date of Admission:: 10/31/24 Discharge Date: 12/20/24 Presenting Problems at Admission:: The patient is a 33-year-old single female with a history of depression and anxiety who is who was referred by her therapist for worsening anxiety in the past few months. The patient has been on FMLA from work for the past 4 weeks due to her mental health issues. 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 She has a hard time being alone at times and she is having intrusive thoughts that she is doing things wrong at work and they are tracking her. She is aware that this is not actually happening. She endorses worthlessness, guilt, and somewhat decreased appetite. Her sleep is good now at 9 to 10 hours a night, but she has low energy level and decreased concentration. When asked if she endorses enjoying anything she does she states I am not doing much. She is a worrier by nature but denies panic attacks. Discharge Diagnoses:: 1. Generalized anxiety disorder F41.1 2. Major depressive disorder, recurrent, moderate 3. Rule out mild autism Reason for Discharge:: Client has shown treatment progress and has been able to successful return to work on a reduced schedule while attending IOP sessions. Client no longer meets criteria for IOP level of care. Treatment Progress During Treatment & Response: Pt responded well to treatment AEB pt's consistent attendance, ongoing attentiveness and engagement in group discussions, and reporting increase use of skills outside treatment environment. Pt's overall mental health symptoms have decreased by 33%. Pt's anxiety has decreased by 44% and depression has decreased by 33% when compared to admission scores. Issues Still to be Addressed:: Pt could benefit from continued work on building confidence, improving communication skills, and challenging distorted thoughts. Discharge Recommendations/Instructions:: Pt will continue to see [facility] at [facility] for individual counseling. Discharge Handout
== END 2024-12-20 12:23 | disposition home or self-care (01) ==
LOC: BHIOP 07:36
PROVIDERS: Referring Provider Psychiatry & Neurology Psychiatry; Visit Provider Psychiatry & Neurology Psychiatry
DX: F41.1 Generalized anxiety disorder (principal); F33.1 Major depressive disorder, recurrent, moderate
CPT/HCPCS: S9480; 90832; 90834; 90853

== ENCOUNTER 2024-12-27 14:48 | Outpatient (RCR) | payer OTHER, SELFPAY ==
--- NOTE | 2024-12-27 14:00 | BH.COMM ---
Communication Note Communication with Client Communication Note: Patient completed IOP and presents today to start relapse prevention group which meets once weekly (1.5 hours) for 8 weeks. Case discussed with Dr. Mae with plan to admit with dx of F41.1 and F33.1
--- NOTE | 2024-12-27 15:44 | BH.MTP ---
Master Treatment Plan Patient Information Program Physician:: Dr. Nathaly Em Primary Therapist:: [facility] Psychiatric Diagnoses Psychiatric Diagnoses:: Generalized anxiety disorder F 41.1; Major depressive disorder, recurrent, moderate Diagnosis Code(s):: F 41.1 Estimated LOS Estimated LOS (in weeks):: 8 Problem/Goal #1 Problem/Goal #1 Stated Goal:: client will maintain or see a reduction in symptoms AEB client score on the DSM 5 cross-cutting measure and improve client's daily functioning. Objectives Objective #1: Stated Objective: Client will continue to consistently apply healthy coping skills to maintain progress made in IOP tx. Interventions: Through group therapy, client will review warning signs and triggers as well as healthy coping skills learned in IOP tx to successfully maintain gains while transitioning into outpatient therapy. Discharge Criteria: Client will have accomplished this goal when client's score on the DSM-5 cross-cutting measure has maintained or reduced over a 8 week period. Target Date: 02/21/25 Review Date: 01/24/25 Status: open Objective #2: Stated Objective: Client will learn and utilize 2-3 maintenance strategies to prevent decompensation from original IOP DSM-5 scores. Interventions: Through group therapy, client will be provided with education on healthy maintenance behaviors, relapse prevention techniques, and healthy coping strategies. Discharge Criteria: Client will have accomplished this goal when can report using at least 2 maintenance skills to prevent decompensation compared to original IOP DSM-5 scores Target Date: 02/21/25 Review Date: 01/24/25 Status: open
== END 2025-01-23 23:59 ==
LOC: BHOG 14:48
PROVIDERS: Referring Provider Psychiatry & Neurology Psychiatry; Visit Provider Psychiatry & Neurology Psychiatry
DX: F33.1 Major depressive disorder, recurrent, moderate (principal); F41.1 Generalized anxiety disorder
CPT/HCPCS: 90853

== ENCOUNTER 2025-01-24 07:36 | Outpatient (RCR) | payer OTHER, SELFPAY ==
--- NOTE | 2025-01-31 14:00 | BH.SGPN.GN ---
Behaviors/Verbalizations/Mental Status: []Pt alert and oriented, neatly dressed and groomed. Eye contact good. Motor activity appropriate. Speech within normal limits. Affect congruent, mood euthymic and anxious. Thoughts linear, logical, no signs of hallucinations or delusions. Client Response/Progress/Benefit: [] Pt took notes and contributed to group discussions. Pt reports she did not see her therapist this week and taking medications consistently. Pt identified coping skills she has been using which included: asking for help when she felt anxious, yoga, goal setting, and affirmations. Pt engaged in discussion on habits and how they are formed. Pt gave examples of how to build healthy habits and reported benefitting from habit stacking. Pt shared she wants to work on building the habit of making a to-do list in the morning before she leaves the house. Pt appeared to benefit from learning about building healthy habits and setting a habit goal. Will continue IOP aftercare to reinforce healthy coping skills and promote gains. ? Narrative Note: []
--- NOTE | 2025-02-14 15:24 | BH.DS ---
Discharge Summary Demographics Date of Admission:: 12/27/24 Discharge Date: 02/14/25 Presenting Problems at Admission:: Pt was admitted to [facility] due to her anxious thoughts and symptoms were interfering with her ability to function at work and complete house hold chores. Pt was admitted to [facility] aftercare to maintain gains made in IOP tx, further reduce symptoms, and improve distress tolerance. Discharge Diagnoses:: 1. Generalized anxiety disorder F41.1 2. Major depressive disorder, recurrent, moderate 3. Rule out mild autism Reason for Discharge:: Pt has accomplished tx goals AEB ability to maintain mood stability and gains made in IOP. Treatment Progress During Treatment & Response: Pt responded well to treatment AEB pt's consistent attendance, ongoing attentiveness and engagement in group discussions, and continued reporting use of skills outside treatment environment. Pt's symptoms are 77% lower than they were at IOP admission per the DSM-5. Pt's anxiety is 66% lower, depression is 83%, and her anger is 100% lower than at IOP admission. Pt has been able to maintain consistent progress for an additional 8 weeks following IOP tx. Issues Still to be Addressed:: reinforcement of healthy coping skills, conflict management, and communicating her needs. Discharge Recommendations/Instructions:: Client will follow up with her individual counselor [facility]. Discharge Handout
--- NOTE | 2025-02-14 15:24 | BH.DS ---
Discharge Summary Demographics Date of Admission:: 12/27/24 Discharge Date: 02/14/25 Presenting Problems at Admission:: Pt was admitted to [facility] due to her anxious thoughts and symptoms were interfering with her ability to function at work and complete house hold chores. Pt was admitted to [facility] aftercare to maintain gains made in IOP tx, further reduce symptoms, and improve distress tolerance. Discharge Diagnoses:: 1. Generalized anxiety disorder F41.1 2. Major depressive disorder, recurrent, moderate 3. Rule out mild autism Reason for Discharge:: Pt has accomplished tx goals AEB ability to maintain mood stability and gains made in IOP. Treatment Progress During Treatment & Response: Pt responded well to treatment AEB pt's consistent attendance, ongoing attentiveness and engagement in group discussions, and continued reporting use of skills outside treatment environment. Pt's symptoms are 77% lower than they were at IOP admission per the DSM-5. Pt's anxiety is 66% lower, depression is 83%, and her anger is 100% lower than at IOP admission. Pt has been able to maintain consistent progress for an additional 8 weeks following IOP tx. Issues Still to be Addressed:: reinforcement of healthy coping skills, conflict management, and communicating her needs. Discharge Recommendations/Instructions:: Client will follow up with her individual counselor [facility]. Discharge Handout
== END 2025-02-15 07:24 | disposition home or self-care (01) ==
LOC: BHOG 07:36
PROVIDERS: Referring Provider Psychiatry & Neurology Psychiatry; Visit Provider Psychiatry & Neurology Psychiatry
DX: F33.1 Major depressive disorder, recurrent, moderate (principal); F41.1 Generalized anxiety disorder
CPT/HCPCS: 90853